=== PATIENT | male | born 1975 | race Two or more races ===

== ENCOUNTER → 2024-04-18 | Outpatient (BNVA) | payer MEDICAID, SELFPAY | END | disposition home or self-care (01) | PROVIDERS: PCP Nurse Practitioner Primary Care; Referring Provider Nurse Practitioner Primary Care; Visit Provider Nurse Practitioner Primary Care | DX: M13.832 Other specified arthritis, left wrist (principal); Z71.2 Person consulting for explanation of examination or test findings | CPT/HCPCS: 99213 ==

== ENCOUNTER 2024-06-20 09:35 | Day surgery (SDC) | payer MEDICAID, SELFPAY ==
[2024-06-20] VITALS (13 sets, daily range): BP systolic 102–143; BP diastolic 53–88; PULSE 50–806; RESP 11–19; TEMP 36.2–36.5; O2SAT 92–100; BMI 24.0
[2024-06-20] MEDS: fentaNYL CIT INJ 50 mCg/ML AMP 2ML (ASD USE ONLY) IV ×2 (11:36→11:47)
[2024-06-20] MEDS: MIDAZOLAM INJ 1 MG/ML VIAL 2 ML (ASD USE ONLY) 2 MG IV ×2 (11:36→11:47)
--- NOTE | 2024-06-20 12:43 | SUR.PHASEII ---
1159 patient is sleepy and arousable, breathing unlabored, s/p colonoscopy by Dr Cleary, report received from Priti OWENS, patient to have stat EKG ordered now. 1135 patient was moving, EKG leads coming off, after several attempts EKG completed.
--- NOTE | 2024-06-20 13:22 | SUR.PHASEII ---
1315 patient is awake, alert, breathing unlabored, able to tolerate water with no nausea or vomiting, meets discharge criteria, Dr. Cleary talk to patient and son and answer questions. discharge instructions given, patient discharged home in wheelchair with all belongings.
== END 2024-06-20 13:15 | disposition home or self-care (01) ==
PROVIDERS: PCP Nurse Practitioner Primary Care; Referring Provider Internal Medicine Gastroenterology; Visit Provider Internal Medicine Gastroenterology
PROC: 0DBE8ZX Excision of Large Intestine, Via Natural or Artificial Opening Endoscopic, Diagnostic (ICD-10-PCS; CPT 45380; principal; 2024-06-20 10:45)
DX: Z12.11 Encounter for screening for malignant neoplasm of colon (principal); K63.89 Other specified diseases of intestine; K64.1 Second degree hemorrhoids; K57.30 Diverticulosis of large intestine without perforation or abscess without bleeding; K62.1 Rectal polyp
CPT/HCPCS: 45380; A4217; A4649; J2250; J3010

== ENCOUNTER → 2024-07-06 | Outpatient (BNVA) | payer MEDICAID, SELFPAY | END | disposition home or self-care (01) | PROVIDERS: PCP Nurse Practitioner Primary Care; Referring Provider Nurse Practitioner Primary Care; Visit Provider Nurse Practitioner Family | DX: R07.9 Chest pain, unspecified (principal); I49.9 Cardiac arrhythmia, unspecified | CPT/HCPCS: 93005; 99214 ==

== ENCOUNTER → 2024-07-12 | Outpatient (BNVA) | payer MEDICAID, SELFPAY | END | disposition home or self-care (01) | PROVIDERS: PCP Nurse Practitioner Primary Care; Referring Provider Nurse Practitioner Primary Care; Visit Provider Nurse Practitioner Primary Care | DX: R07.9 Chest pain, unspecified (principal); I49.9 Cardiac arrhythmia, unspecified | CPT/HCPCS: 99213 ==

== ENCOUNTER → 2024-07-19 | Outpatient (BNVA) | payer MEDICAID, SELFPAY | END | disposition home or self-care (01) | PROVIDERS: PCP Nurse Practitioner Family; Referring Provider Nurse Practitioner Family; Visit Provider Nurse Practitioner Family | DX: Z00.01 Encounter for general adult medical examination with abnormal findings (principal); Z13.1 Encounter for screening for diabetes mellitus; Z13.228 Encounter for screening for other metabolic disorders | CPT/HCPCS: 99215 ==

== ENCOUNTER → 2024-08-02 | Outpatient (BNVA) | payer MEDICAID, SELFPAY | END | disposition home or self-care (01) | PROVIDERS: PCP Nurse Practitioner Primary Care; Referring Provider Nurse Practitioner Primary Care; Visit Provider Nurse Practitioner Primary Care | DX: Z71.2 Person consulting for explanation of examination or test findings (principal) | CPT/HCPCS: 99212; G0463 ==

== ENCOUNTER → 2025-03-28 | Outpatient (BNVA) | payer MEDICAID, SELFPAY | END | disposition home or self-care (01) | PROVIDERS: PCP Nurse Practitioner Primary Care; Referring Provider Nurse Practitioner Primary Care; Visit Provider Nurse Practitioner Primary Care | DX: G43.009 Migraine without aura, not intractable, without status migrainosus (principal); Z23 Encounter for immunization; M25.561 Pain in right knee; I49.9 Cardiac arrhythmia, unspecified | CPT/HCPCS: 90471; 90686; 99213; G0008 ==